=== PATIENT | female | born 1950 | race Caucasian/White ===

== ENCOUNTER → 2024-05-02 | Outpatient (CLI) | payer OTHER, SELFPAY ==
--- NOTE | 2024-05-02 12:28 | XR_ITS ---
Examination: Ultrasound abdominal aorta TECHNIQUE: Multiple high resolution grayscale sonographic images abdominal aorta Exam date and time: May 02, 2024 1236 hours INDICATIONS: CT chest January 22, 2024 AP dimension ascending thoracic aorta 4.2 cm, smoking history 40 years. FINDINGS: Transverse dimension proximal aorta 2.4 x 2.5 cm mid aorta 1.9 x 1.9 cm distal aorta 1.9 x 1.6 cm right iliac artery 0.6 x 5.5 cm left iliac artery 0.8 x 5.9 cm IMPRESSION: Negative for abdominal aortic aneurysm
== END | disposition home or self-care (01) ==
PROVIDERS: PCP Nurse Practitioner Family; Referring Provider Nurse Practitioner Family; Visit Provider Nurse Practitioner Family
DX: I71.40 Abdominal aortic aneurysm, without rupture, unspecified (principal); F17.200 Nicotine dependence, unspecified, uncomplicated
CPT/HCPCS: 76706

== ENCOUNTER → 2024-05-02 | Outpatient (CLI) | payer OTHER, SELFPAY ==
--- NOTE | 2024-05-02 11:30 | XR_ITS ---
Examination: CT chest, without intravenous contrast. Sagittal and coronal 2-D reconstructions. Exam date and time: May 02, 2024 1126 hours Comparison January 22, 2024 INDICATIONS: Smoking history 47 years, 12 mm pulmonary nodule left upper lobe 2 mm pulmonary nodule right lower lobe on CT chest January 22, 2024 CTDI:vol (mGy) 9.41 DLP: (mGycm) 338 Technique: Multiple 3.0 mm axial sections of the chest to been obtained. Bone and lung density settings are obtained. Sagittal and coronal 2-D reconstructions have been obtained. Low dose protocols were performed. One or more of the following dose reduction techniques were used; automated exposure control, adjustment of the mA and/or KV according to patient size, use of iterative reconstruction technique. Findings: AP dimension ascending thoracic aorta 4.1 cm Significant calcification left main left anterior descending left circumflex coronary arteries No paratracheal tracheobronchial or bronchopulmonary adenopathy New 3 mm pulmonary nodule right upper lobe image 98 No pneumonia or pulmonary edema Normal liver or splenic lesion No gallstones Partial visualization right renal calculi, the largest 4 mm IMPRESSION: Mild aneurysmal dilatation ascending thoracic aorta 4.1 cm Significant coronary artery calcification New 3 mm pulmonary nodule right upper lobe, recommend 1 additional 6 month follow-up CT chest without contrast
== END | disposition home or self-care (01) ==
LOC: CCTX 11:14
PROVIDERS: PCP Family Medicine; Referring Provider Specialist; Visit Provider Specialist
DX: I71.21 Aneurysm of the ascending aorta, without rupture (principal); I25.10 Atherosclerotic heart disease of native coronary artery without angina pectoris; R91.1 Solitary pulmonary nodule
CPT/HCPCS: 71250

== ENCOUNTER → 2024-06-22 | Outpatient (CLI) | payer OTHER, SELFPAY ==
--- NOTE | 2024-06-22 12:37 | XR_ITS ---
Examination: Cervical spine 4 views TECHNIQUE: AP, lateral, swimmer's lateral coned AP odontoid cervical spine 4 views Exam date and time: June 22, 2024 1250 hours INDICATIONS: Neck pain years. FINDINGS: Cervical levoscoliosis 12 degrees Advanced degenerative disc disease C3-C4, C4-C5, C5-C6 There is no diagnostic visualization C7 The odontoid is intact IMPRESSION: Limited study Advanced degenerative disc disease C3-C4, C4-C5, C5-C6
== END | disposition home or self-care (01) ==
LOC: CDIM 12:27
PROVIDERS: PCP Family Medicine; Referring Provider Physical Medicine & Rehabilitation Pain Medicine; Visit Provider Physical Medicine & Rehabilitation Pain Medicine
DX: M50.31 Other cervical disc degeneration, high cervical region (principal)
CPT/HCPCS: 72040

== ENCOUNTER → 2024-08-05 | Outpatient (CLI) | payer OTHER, SELFPAY ==
[2024-08-05 09:54] LABS: Collection Type, Urine Clean Catch
[2024-08-05 10:23] LABS: Basophils # (Auto) 0.1 Thou/mm3 (0.0-0.2); Basophils % (Auto) 1 % (0-2.5); Eosinophils # (Auto) 0.4 Thou/mm3 (0.0-0.5); Eosinophils % (Auto) 6 % (0-10); Hemoglobin 16.5 g/dL (12.0-16.0); Immature Granulocytes % (Auto) 0 % (0-0); Immature Granulocytes Auto 0.02 Thou/mm3 (0.00-0.00); Lymphocytes # (Auto) 1.5 Thou/mm3 (1.0-4.8); Lymphocytes % (Auto) 23 % (10-50); Mean Corpuscular HGB Conc 33.7 g/dl (31.0-37.0); Mean Corpuscular Hemoglobin 31.2 pg (25.0-35.0); Mean Corpuscular Volume 93 fL (80-100); Monocytes # (Auto) 0.5 Thou/mm3 (0.0-0.8); Monocytes % (Auto) 7 % (0-12); Neutrophils # (Auto) 4.2 Thou/mm3 (1.8-7.7); Neutrophils % (Auto) 63 % (37-80); Nucleated Red Blood Cell % 0 /100 WBC (0); Platelet Count 287 Thou/mm3 (140-440); RDW Standard Deviation 49.5 fL (36.4-46.3); Red Blood Count 5.29 Miln/mm3 (4.00-5.20); White Blood Count 6.7 Thou/mm3 (3.6-11.0)
[2024-08-05 10:34] LABS: Bacteria,Urine Rare; Bilirubin,Urine Negative (Negative); Blood,Urine 1+ (Negative); Clarity,Urine Turbid (Clear/Hazy); Color,Urine Yellow (Lt Yel-Yel); Glucose, Urine Negative (Negative); Ketones,Urine Negative (Negative); Leukocyte Esterase,Urine Positive (Negative); Nitrite,Urine Positive (Negative); Protein,Urine Trace (Neg - Trace); RBC,Urine 18 /hpf (0-3); Specific Gravity,Urine 1.019 (1.001-1.035); Squamous Epithelial Cell,Urine 3 /hpf (0-5); Urobilinogen,Urine Negative mg/dL (0.0-1.0); WBC,Urine 30 /hpf (0-5)
[2024-08-05 10:35] LABS: Culture Indicated,Urine Yes
[2024-08-05 10:44] LABS: Alanine Aminotransferase 15 U/L (10-49); Albumin, Serum 4.4 gm/dL (3.4-4.8); Albumin/Globulin Ratio 2.1 (1.2-2.2); Alkaline Phosphatase 86 U/L (46-116); Anion Gap 8 (7-16); Aspartate Amino Transferase 16 U/L (0-34); BUN/Creatinine Ratio 18 Ratio (12-20); Bilirubin,Total 0.7 mg/dL (0.3-1.2); Blood Urea Nitrogen 16 mg/dL (9-23); Calcium 9.7 mg/dL (8.3-10.6); Calcium (Corrected) 9.7 mg/dL (8.5-10.1); Carbon Dioxide 29.3 mMol/L (20.0-31.0); Cardiac Risk Estimate 3.6 RATIO (3.7-5.6); Chloride 107 mMol/L (98-107); Cholesterol 217 mg/dL (132-200); Creatinine (Component) 0.9 mg/dL (0.6-1.3); Globulin 2.1 gm/dL (2.3-3.5); Glucose 81 mg/dL (74-106); HDL Cholesterol 61 mg/dL (40-60); LDL Cholesterol,Calculated 131 mg/dL (0-130); Osmolality,Calculated 287 (275-295); Potassium 4.7 mMol/L (3.4-5.1); Sodium 144 mMol/L (136-145); Thyroid Stimulating Hormone 1.86 uIU/mL (0.55-4.78); Total Protein 6.5 gm/dL (5.7-8.2); Triglycerides 126 mg/dL (30-150); eGFR > 60 See Note
== END | disposition home or self-care (01) ==
LOC: COPL 09:24
PROVIDERS: PCP Nurse Practitioner Family; Referring Provider Nurse Practitioner Family; Visit Provider Nurse Practitioner Family
DX: Z00.00 Encounter for general adult medical examination without abnormal findings (principal)
CPT/HCPCS: 36415; 80053; 80061; 81001; 84443; 85025; 87077; 87086; 87186

== ENCOUNTER → 2024-08-16 | Outpatient (CLI) | payer OTHER, SELFPAY ==
[2024-08-19 06:34] LABS: Fecal Globin Result NOT DETECTED (NOT DETECTED)
== END | disposition home or self-care (01) ==
PROVIDERS: PCP Family Medicine; Referring Provider Nurse Practitioner Family; Visit Provider Nurse Practitioner Family
DX: Z00.00 Encounter for general adult medical examination without abnormal findings (principal)
CPT/HCPCS: 82274; G0328

== ENCOUNTER 2024-11-05 16:02 | Emergency (ER) | payer OTHER, SELFPAY ==
[2024-11-05 16:03] VITALS: BMI 26.6
[2024-11-05 16:12] VITALS: BP 138/78; PULSE 89; RESP 18; TEMP 36.7; O2SAT 95
--- NOTE | 2024-11-05 16:22 | XR_ITS ---
Examination: CT abdomen and pelvis without contrast. Coronal 3-D reconstructions. Sagittal 2-D reconstructions. Date and time of exam:November 05, 2024 7004 hours INDICATIONS: Right flank pain and vomiting beginning today CTDI: vol (mGy): . 9.86 DLP: (mGycm): 491 Technique: Axial images of the abdomen have been obtained, 3 mm slice thickness Intravenous contrast material has not been administered. Low dose protocols were performed. One or more of the following dose reduction techniques were used; automated exposure control, adjustment of the mA and/or KV according to patient size, use of iterative reconstruction technique. Findings: No focal liver or splenic lesions No gallstones No pancreatic or adrenal mass Multiple right renal calculi, the largest in the lower pole 8 mm Mild right hydronephrosis secondary to 4 mm proximal right ureteral calculus No left hydronephrosis Abdominal aortic calcification no aneurysmal dilatation No bowel obstruction Normal appendix 32 mm left ovarian cyst No bladder mass or bladder calculi IMPRESSION: Mild right hydronephrosis secondary to 4 mm proximal right ureteral calculus
--- NOTE | 2024-11-05 16:23 | PD.EDRME ---
Rapid Medical Screening Exam RME Arrival date/time: 11/05/24 16:02 74-year-old female presents emergency department today for complaints of right flank pain Chief Complaint: Back Pain/Injury Vital signs: Vital Signs Temperature 98.1 F 11/05/24 16:12 Pulse Rate 89 11/05/24 16:12 Respiratory Rate 18 11/05/24 16:12 Blood Pressure 138/78 H 11/05/24 16:12 Pulse Oximetry (%) 95 11/05/24 16:12 Oxygen Delivery Method Room Air 11/05/24 16:12
[2024-11-05 16:48] LABS: Basophils # (Auto) 0.1 Thou/mm3 (0.0-0.2); Basophils % (Auto) 1 % (0-2.5); Eosinophils # (Auto) 0.3 Thou/mm3 (0.0-0.5); Eosinophils % (Auto) 2 % (0-10); Hematocrit 44.3 % (36.0-46.0); Hemoglobin 15.7 g/dL (12.0-16.0); Immature Granulocytes % (Auto) 0 % (0-0); Immature Granulocytes Auto 0.04 Thou/mm3 (0.00-0.00); Lymphocytes # (Auto) 0.9 Thou/mm3 (1.0-4.8); Lymphocytes % (Auto) 6 % (10-50); Mean Corpuscular HGB Conc 35.4 g/dl (31.0-37.0); Mean Corpuscular Hemoglobin 31.8 pg (25.0-35.0); Mean Corpuscular Volume 90 fL (80-100); Monocytes # (Auto) 0.8 Thou/mm3 (0.0-0.8); Monocytes % (Auto) 5 % (0-12); Neutrophils # (Auto) 12.8 Thou/mm3 (1.8-7.7); Neutrophils % (Auto) 86 % (37-80); Nucleated Red Blood Cell % 0 /100 WBC (0); Platelet Count 282 Thou/mm3 (140-440); RDW Standard Deviation 45.8 fL (36.4-46.3); Red Blood Count 4.94 Miln/mm3 (4.00-5.20); White Blood Count 14.8 Thou/mm3 (3.6-11.0)
--- NOTE | 2024-11-05 16:51 | PC.NURSE ---
no answer x 1 at 1650. checked outside and lobby.
[2024-11-05 17:08] LABS: Alanine Aminotransferase 23 U/L (10-49); Albumin, Serum 4.5 gm/dL (3.4-4.8); Alkaline Phosphatase 89 U/L (46-116); Anion Gap 12 (7-16); BUN/Creatinine Ratio 17 Ratio (12-20); Bilirubin,Total 0.6 mg/dL (0.3-1.2); Blood Urea Nitrogen 15 mg/dL (9-23); Calcium 9.5 mg/dL (8.3-10.6); Calcium (Corrected) 9.5 mg/dL (8.5-10.1); Carbon Dioxide 27.1 mMol/L (20.0-31.0); Chloride 106 mMol/L (98-107); Creatinine (Component) 0.9 mg/dL (0.6-1.3); Estimated Creatinine Clearance 54.4 mL/min (>60); Globulin 2.2 gm/dL (2.3-3.5); Glucose 132 mg/dL (74-106); Lipase 36 U/L (12-53); Osmolality,Calculated 291 (275-295); Potassium 3.7 mMol/L (3.4-5.1); Sodium 145 mMol/L (136-145); Total Protein 6.7 gm/dL (5.7-8.2); eGFR > 60 See Note
[2024-11-05] MEDS: KETOROLAC INJ 30 MG/ML VIAL IM (17:14)
[2024-11-05] MEDS: ONDANSETRON ODT 4 MG TABRAP PO (17:15)
--- NOTE | 2024-11-05 18:09 | PRELIM_ITS ---
CT scan of the abdomen and pelvis without intravenous contrast (axial sections with sagittal and coronal reformats) November 05, 2024 1704 hours Clinical History: Right flank pain Comparison: No prior study is available for comparison. Findings: Bibasilar dependent atelectasis is present. There is a 4 mm obstructing calculus in the right proximal ureter (axial images 108/237) causing mild hydronephrosis and periureteric/perinephric fat stranding. Nonobstructing right renal calculi are seen, the largest measuring 7 mm in the right kidney. The liver, gallbladder, pancreas, spleen and adrenals are unremarkable on this noncontrast study. No evidence of bowel obstruction. The appendix is within normal limits (images 141-137/237). There is no mesenteric or retroperitoneal adenopathy. The aorta and its branches demonstrate atheromatous calcification without evidence of aneurysm. The urinary bladder is unremarkable. The uterus is unremarkable. There is a left ovarian follicle. There is no free fluid or free air. Degenerative changes are identified in the spine. Impression: 1. 4 mm obstructing calculus in the right proximal ureter causing mild hydronephrosis. 2. Nonobstructing right renal calculi as described. 3. Other findings as described above. Report Electronically Signed By: Benjamin Mckoy 11/05/2024 6:09:02 PM [EST]
[2024-11-05 18:35] LABS: Collection Type, Urine Clean Catch
[2024-11-05 18:52] LABS: Bacteria,Urine 1+; Bilirubin,Urine Negative (Negative); Blood,Urine 3+ (Negative); Clarity,Urine Turbid (Clear/Hazy); Color,Urine Yellow (Lt Yel-Yel); Glucose, Urine Negative (Negative); Ketones,Urine Trace (Negative); Leukocyte Esterase,Urine Positive (Negative); Nitrite,Urine Negative (Negative); Protein,Urine 1+ (Neg - Trace); RBC,Urine 374 /hpf (0-3); Squamous Epithelial Cell,Urine 7 /hpf (0-5); Urobilinogen,Urine Negative mg/dL (0.0-1.0); WBC,Urine 137 /hpf (0-5)
[2024-11-05 18:54] LABS: Culture Indicated,Urine Yes
--- NOTE | 2024-11-05 18:54 | PD.EDBACK ---
ED Back Injury Pain RME/HPI General Chief Complaint: Back Pain/Injury Stated Complaint: R FLANK PAIN X 3H Time Seen by Provider: 11/05/24 18:13 Arrival date/time: 11/05/24 16:02 RME / HPI RME / HPI Narrative: 11/05/24 16:02 74-year-old female presents emergency department today for complaints of right flank pain This section includes all my notes and documentations, including HPI, PE, and ED course. Ariel Kwong MD HPI: 74 y/o female with Hx of kidney stones presents with severe intermittent right flank pain and vomiting x several days but severely worse earlier today. No other complaints. ROS: All negative except as documented in HPI. Physical Exam: General: Alert and oriented. No acute distress when remaining still. Eyes: Conjunctivae and lids clear. ENT: No nasal congestion. Neck: Supple. Heart: RRR. Lungs: No respiratory distress. Good air movement. No rhonchi, wheezing, rales. Abdomen: Soft and nontender. Normal bowel sounds. No distension. No rebound or guarding. Back: No CVA tenderness. Skin: Warm and dry. Neuro: Alert and oriented X 3. I reviewed all diagnostic test results: My review of the abdominal CT report is: Mild right hydronephrosis secondary to 4 mm proximal right ureteral calculus. Blood tests and urine tests remarkable for UTI. At this point, diagnoses include: Right Kidney Stone with UTI. Treatment here included: Tamsulosin, Zofran, Toradol. Dispensed urine strainer. Recommended outpatient care. Based on my best medical judgment, made decision no further evaluation or treatment indicated at this time. Patient understands and agrees to the discharge instructions customized and printed, see below. Discharge Instructions from Dr. Kwong: --Your symptoms are due to a 4 mm right kidney stone.? It is outside the kidney.? It is trying to pass into your bladder.? --Increase oral fluid to flush your kidneys.? Maintain clear urine. if it's dark or yellow then increase oral fluid.? If you don't do this, you won't pass it.? --Take Flomax to help decrease spasms to increase the chance of passing it.? --Take Zofran as needed for nausea or vomiting. --Take Ketorolac/Toradol for pain control.? And Tylenol with Codeine.? If you are in severe pain, you won't pass it.?? --Strain your urine so you can catch the stone when you pass it.? --See a private doctor on 11/07/2024 for recheck. Take the stone with you for analysis because certain stones can be prevented.? If you didn't pass it, ask for referral to see urologist.? Who will take the stone out for you. --Seek immediate medical care with fever over 100.4, persistent vomiting despite Zofran, intolerable pain, or with any concerns.?? Ariel Kwong MD Related Data Home Medications ?Medication ?Instructions ?Recorded ?Confirmed budesonide-formoterol HFA 160 1 puff inhalation BID 03/08/19 07/10/23 mcg-4.5 mcg/actuation aerosol inhaler (Symbicort) estradiol 0.01% (0.1 mg/gram) 2 gm vaginal DIRECTED 03/08/19 07/10/23 vaginal cream (Estrace) montelukast 10 mg tablet 10 mg PO QPM 03/08/19 07/10/23 (Singulair) oxybutynin chloride 10 mg 10 mg PO QDAY 10/22/20 07/10/23 tablet,extended release 24 hr amlodipine 2.5 mg tablet 2.5 mg PO QDAY 01/06/23 07/10/23 Previous Rx's ?Medication ?Instructions ?Recorded acetaminophen 300 mg-codeine 30 mg 2 tab PO Q8H PRN pain #20 tabs 11/05/24 tablet cefdinir 300 mg capsule 300 mg PO BID #14 caps 11/05/24 ketorolac 10 mg tablet 10 mg PO Q8H PRN pain 5 days #10 11/05/24 tabs ondansetron 4 mg disintegrating 4 mg PO TID PRN nausea and 11/05/24 tablet vomiting 30 days #10 tabs Allergies Allergy/AdvReac Type Severity Reaction Status Date / Time codeine AdvReac Intermediate Nausea Verified 11/05/24 16:05 Review of Systems Review of Systems Systems Reviewed: All systems reviewed, normal except as documented Past Medical History Past Medical History RESPIRATORY: Positive Chronic Obstructive Pulmonary Disease (COPD) ED Exam Narrative Physical exam: Refer to HPI above Course Quality Measures none Orders Category Date Time Status Miscellaneous Nursing Order NOW Care 11/05/24 18:[address] abdomen pelvis wo con Stat Exams 11/05/24 16:22 Completed CBC Stat Lab 11/05/24 16:38 Completed Comprehensive Metabolic Panel Stat Lab 11/05/24 16:38 Completed Lipase Stat Lab 11/05/24 16:38 Completed UA, C/S IF [Urinalysis, C/S if Indicated] Stat Lab 11/05/24 18:16 Completed Urine Culture Stat Lab 11/05/24 18:16 Received Ketorolac Inj [Toradol Inj] Med 11/05/24 16:22 Discontinued 30 mg IM X1 ONE Ondansetron Odt [Zofran Odt] Med 11/05/24 16:22 Discontinued 4 mg PO X1 ONE Tamsulosin HCl [Flomax] Med 11/05/24 18:55 Discontinued 0.4 mg PO X1 ONE Vital Signs Vital signs: Vital Signs Temperature 98.1 F 11/05/24 16:12 Pulse Rate 89 11/05/24 16:12 Respiratory Rate 18 11/05/24 16:12 Blood Pressure 138/78 H 11/05/24 16:12 Pulse Oximetry (%) 95 11/05/24 16:12 Oxygen Delivery Method Room Air 11/05/24 16:12 Back Pain / Injury MDM Narrative MDM Narrative:: Scribe Attestation: Geno Pryor am scribing for and in the presence of Dr. Kwong. Provider Notation: Although this document has been carefully reviewed, there may still be some phonetic and other typographical errors.? These errors are purely grammatical due to imperfections in the software program and should not be construed in any way to? compromise the substance of the patient's medical care during this visit. 74 y/o female with Hx of kidney stones presents with severe intermittent right flank pain and vomiting x few hours. Patient sees Dr. Paredes and was advised to have remaining kidney stones removed, but patient did not want to undergo surgery. No other complaints. Patient data External records reviewed:: [facility] previous records (No prior ED records available for review.) Clinical information provided by:: patient Social determinants that could affect healthcare access:: none Patient has the following chronic illnesses:: COPD How is presenting disease/condition affected by chronic disease/condition?: uneffected by Evaluation data The following diagnostics were reviewed and interpreted by me:: lab results and radiology exam(s) Lab and/or radiology exams considered but not ordered:: None Interpretation Summary: I reviewed all diagnostic test results: My review of the abdominal CT report is: Mild right hydronephrosis secondary to 4 mm proximal right ureteral calculus. Blood tests and urine tests remarkable for UTI. Medications / Prescriptions Medications or Prescriptions considered but not ordered:: None Medication administrations:: Medication Administration History Discontinued Medications Ketorolac Tromethamine (Ketorolac Inj 30 Mg/Ml Vial) 30 mg IM X1 ONE Stop: 11/05/24 16:23 Last Admin: 11/05/24 17:14 Dose: 30 mg Documented By: MYRON Ondansetron HCl (Ondansetron Odt 4 Mg Tabrap) 4 mg PO X1 ONE; Protocol Stop: 11/05/24 16:23 Last Admin: 11/05/24 17:15 Dose: 4 mg Documented By: MYRON Tamsulosin HCl (Tamsulosin Hcl 0.4 Mg Capsule) 0.4 mg PO X1 ONE Stop: 11/05/24 18:56 Toradol, Zofran, Tamsulosin Consultations Consultation(s) initiated? (list below): No Diagnosis Differential diagnosis back pain/injury: lumbar radiculopathy, sciatica, strain of lumbar region, renal colic, pyelonephritis, thoracic back pain and discitis Most likely diagnosis given after review of the tests above:: Right Kidney Stone with UTI. Admission Indicated Admission indicated?: not indicated Explain why admission is indicated or not indicated:: With significant improvement, there was no indication for admission. Admission Request Was there a request for admission?: No Disposition Plan Disposition Plan: Discharge Discharge Attestation Discharge Attestation: The patient and all family members were given an opportunity to ask questions and understood the discharge instructions. Discharge instructions specifically effects, indications for sooner follow up or return to the emergency department, and the expected course of current diagnosis. Patient condition: Stable Discharge Plan Plan Patient Disposition: HOME (Self Care) Prescriptions/Referrals Prescriptions/Med Rec: New acetaminophen-codeine 300-30 mg tablet 2 tab PO Q8H MDD 6 PRN (Reason: pain) Qty: 20 0RF ketorolac 10 mg tablet 10 mg PO Q8H PRN (Reason: pain) 5 Days Qty: 10 0RF ondansetron 4 mg tablet,disintegrating 4 mg PO TID PRN (Reason: nausea and vomiting) 30 Days Qty: 10 0RF cefdinir 300 mg capsule 300 mg PO BID Qty: 14 0RF No Action montelukast [Singulair] 10 mg tablet 10 mg PO QPM Symbicort 160-4.5 mcg/actuation HFA aerosol inhaler 1 puff INH BID estradiol [Estrace] 0.01 % (0.1 mg/gram) cream 2 gm VAGINAL DIRECTED Patient Comments: Apply twice a week. oxybutynin chloride 10 mg tablet extended release 24hr 10 mg PO QDAY amlodipine 2.5 mg tablet 2.5 mg PO QDAY Referrals: Misti Alvarez REGISTERED MASSAGE THERAPIST [Primary Care Provider] - In 1 week Problem List Clinical Impression: Right kidney stone Patient/Caregiver Discharge Instructions Discharge Activity: activity as tolerated Education Materials: ED Kidney Stone w/ Colic Additional Instructions: Discharge Instructions from Dr. Kwong: --Your symptoms are due to a 4 mm right kidney stone.? It is outside the kidney.? It is trying to pass into your bladder.? --Increase oral fluid to flush your kidneys.? Maintain clear urine. if it's dark or yellow then increase oral fluid.? If you don't do this, you won't pass it.? --Take Flomax to help decrease spasms to increase the chance of passing it.? --Take Zofran as needed for nausea or vomiting. --Take Ketorolac/Toradol for pain control.? And Tylenol with Codeine.? If you are in severe pain, you won't pass it.?? --Strain your urine so you can catch the stone when you pass it.? --See a private doctor on 11/07/2024 for recheck. Take the stone with you for analysis because certain stones can be prevented.? If you didn't pass it, ask for referral to see urologist.? Who will take the stone out for you. --Seek immediate medical care with fever over 100.4, persistent vomiting despite Zofran, intolerable pain, or with any concerns.?? Print Language: [place] Island[place] Stand Alone Forms: Michelle Award Info., Patient Portal Info Letter
[2024-11-05] MEDS: TAMSULOSIN HCL 0.4 MG CAPSULE PO (19:10)
== END 2024-11-05 19:24 | disposition home or self-care (01) ==
PROVIDERS: Nurse Practitioner Primary Care; Emergency Provider Emergency Medicine; PCP Nurse Practitioner Family
DX: N13.2 Hydronephrosis with renal and ureteral calculous obstruction (principal)
CPT/HCPCS: 36415; 74176; 80053; 81001; 83690; 85025; 87077; 87086; 87186; 96372; 99284; J1885; Q0162; A9270